=== PATIENT | female | born 1985 ===

== ENCOUNTER 2017-05-05 19:44 | Emergency (ER) | payer BC, SELFPAY ==
[2017-05-05 21:10] LABS: #Basophils 0.1 thou/uL (0.0-0.2); #Eosinphils 0.1 thou/uL (0.0-0.7); #Lymphocytes 1.4 thou/uL (1.20-3.40); #Monocytes 0.5 thou/uL (0.11-0.59); #Neutrophils 7.6 thou/uL (1.40-6.50); %Basophils 0.6 % (0.0-1.0); %Eosinophils 0.7 % (0.0-10.0); %Lymphocytes 14.9 % (21.0-51.0); %Monocytes 4.8 % (0.0-10.0); Hematocrit 38.8 % (36.0-47.0); Mean Platelet Volume 8.4 fL (7.4-10.4); Red Blood Cell (RBC) Count 4.21 mill/uL (4.20-5.40); White Blood Cell (WBC) Count 9.6 thou/uL (4.8-10.8)
[2017-05-05] MEDS ORDERED: diphenhydrAMINE HCl 50 MG/ML 1 ML VIAL ONE (21:15)
[2017-05-05] MEDS ORDERED: Metoclopramide HCl 10 MG/2 ML VIAL ONE (21:15)
[2017-05-05] MEDS ORDERED: Acetaminophen 500 MG TAB ONE (21:15)
[2017-05-05 21:20] LABS: ALT (SGPT) 32 U/L (8-55); AST (SGOT) 25 U/L (5-34); Alkaline Phosphatase 61 U/L (40-150); Anion Gap 12 mmol/L (10-20); BUN (Urea Nitrogen) 20 mg/dL (7.0-18.7); Bilirubin, Total 1.2 mg/dL (0.2-1.2); Calc. Creatinine Clearance 0 mL/min (70-130); Calcium 9.2 mg/dL (7.8-10.44); Carbon Dioxide 26 mmol/L (22-29); Chloride 106 mmol/L (98-107); Estimated GFR-MDRD 75; Globulin 3.3 g/dL (2.4-3.5); Protein, Total 7.6 g/dL (6.0-8.3)
[2017-05-05] MEDS ORDERED: Meclizine HCl 25 MG TAB ONE (22:24)
--- NOTE | 2017-05-05 23:02 | CT ---
CT BRAIN NONCONTRAST: HISTORY: A 31-year-old female with headache, dizziness, near syncope, nausea, an emesis. FINDINGS: The ventricles are normal in size and configuration. There is no midline shift or any other mass ef fect. There is no evidence of acute intracranial hemorrhage, large cortical infarct, or extraaxial fluid collection. The العلي matter /white matter differentiation is maintained. The calvarium is in tact. The tympanomastoid cavities, and the upper portions of the paranasal sinuses included in thes e images, are grossly clear. IMPRESSION: Normal. jn [] POS: [facility]
== END 2017-05-05 22:47 | disposition home or self-care (01) ==
LOC: ERS 19:44
DX: R42 Dizziness and giddiness (principal)
CPT/HCPCS: 70450; 80053; 84703; 85025; 96365; 96375; J1200; J2765